=== PATIENT | male | born 1995 | race Caucasian/White ===

== ENCOUNTER 2018-01-04 23:02 | Emergency (ER) | payer SELFPAY ==
--- NOTE | 2018-01-04 23:29 | ED.PDOC ---
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 Occurred: just prior to arrival Pain - Lower Extremity: moderate: Left Ankle Method of Injury: fell, twisted Improving Factors: nothing Worsening Factors: nothing Associated Symptoms: pain weight bearing Allergies/Adverse Reactions: Allergies NO KNOWN ALLERGY Allergy (Verified 08/14/15 22:37) Home Medications: Ambulatory Orders Albuterol Inhaler [Proventil Hfa Inhaler] 2 puff INH Q4H #1 inh 07/25/15 Review of Systems - Review of Systems Constitutional: States: no symptoms reported EENTM: States: no symptoms reported Respiratory: States: no symptoms reported Cardiology: States: no symptoms reported Musculoskeletal: States: joint pain All other Systems: Reviewed and Negative, No Change from Baseline Past Medical History (General) - Patient Medical History Hx Seizures: No Hx Stroke: No Hx Dementia: No Hx Asthma: Yes Hx of COPD: No Hx Cardiac Disorders: No Hx Congestive Heart Failure: No Hx Pacemaker: No Hx Hypertension: No Hx Thyroid Disease: No Hx Diabetes: No Hx Gastroesophageal Reflux: No Hx Renal Disease: No Hx Cancer: No Hx of HIV: No Hx Hepatitis C: No Hx MRSA: No Surgical History: no surgical history - Vaccination History Hx Tetanus, Diphtheria Vaccination: No - Social History Hx Tobacco Use: Yes Hx Alcohol Use: Yes Hx Substance Use: No Hx Substance Use Treatment: No Hx Depression: Yes - thought of hurting himself, but not "suicidal" Hx Physical Abuse: No Hx Emotional Abuse: No Hx Suspected Abuse: No - Female History Patient : No Family Medical History - Family History Mother Family History: Unknown Physical Exam - Physical Exam General Appearance: Alert, Comfortable, No apparent distress Eyes, Ears, Nose, Throat: normal ENT inspection Neck: non-tender, full range of motion, supple Cardiovascular/Respiratory: regular rate, rhythm, no M/R/G, normal peripheral pulses, normal breath sounds Gastrointestinal/Abdominal: non-tender, no organomegaly Back: no CVA tenderness, no vertebral tenderness Thigh/Hip: no evidence of injury Knee: no evidence of injury Ankle: bone tenderness - left ankle left, limited ROM - left ankle, pain - left ankle Foot: bone tenderness - dorsal aspect foot left Neuro/Tendon: normal sensation, normal motor functions, normal tendon functions , no evidence tendon injury Mental Status: alert, oriented x 3 Skin: normal color, warm/dry Progress - Progress Progress: 01/05/18 00:52 Vital Signs - 8 hr 01/04/18 23:28 Temperature 98 F Pulse Rate [ 78 Right] Respiratory 18 Rate Blood Pressure 122/75 [Left Arm] O2 Sat by Pulse 98 Oximetry - EKG/XRAY/CT XRAY: ankle - left no fracture Departure - Departure Clinical Impression: Medial ankle sprain Qualifiers: Encounter type: initial encounter Laterality: left Qualified Code(s): S93.422A - Sprain of deltoid ligament of left ankle, initial encounter Fall from ladder Qualifiers: Encounter type: initial encounter Qualified Code(s): W11.XXXA - Fall on and from ladder, initial encounter Time of Disposition: 00:54 Disposition: Discharge to Home or Self Care Condition: Good Departure Forms: ED Discharge - Pt. Copy, Patient Portal Self Enrollment Instructions: DI for Ankle Sprain, Ankle Sprain Home Medications: Ambulatory Orders Albuterol Inhaler [Proventil Hfa Inhaler] 2 puff INH Q4H #1 inh 07/25/15 Additional Instructions: Ice pack to affected area 20 minutes 3 x a day during waking hours only as needed for 3 days;May use Aspercreme Cream apply to left ankle 3 x a day for 10- 14 days(over the counter)Elevate left leg 20 degrees at bedtime until better; May take ALEVE 1-2 tablets am/pm for pain swelling as needed until better(over the counter)Follow up with primary Md 01/11/2018 as needed
[2018-01-04 23:49] VITALS: BP 122/75; TEMP 98; O2SAT 98
--- NOTE | 2018-01-05 00:13 | RAD ---
Examination: XR ANKLE 3 OR MORE VIEWS dated 01/04/2018 11:32 PM CDT History: fell off ladder Comparison: None Technique: Three views of the left ankle FINDINGS: No acute fracture or dislocation. Symmetric ankle mortise. IMPRESSION: No acute osseous abnormality. Electronically signed by: Aroldo Roque MD 01/05/2018 12:12 AM CDT
[2018-01-05] MEDS ORDERED: KETOROLAC TROMETHAMINE INJ 30 MG/ML VIAL IM ONE (00:59)
== END 2018-01-05 01:16 | disposition home or self-care (01) ==
LOC: ER 23:02
DX: S93.422A Sprain of deltoid ligament of left ankle, initial encounter (principal); W11.XXXA Fall on and from ladder, initial encounter; Y92.89 Other specified places as the place of occurrence of the external cause; Y99.0 Civilian activity done for income or pay
CPT/HCPCS: 73610; J1885

== ENCOUNTER 2018-10-28 17:43 | Emergency (ER) | payer SELFPAY ==
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
[2018-10-28 19:09] VITALS: BP 129/83; TEMP 97.9; O2SAT 97
== END 2018-10-28 19:08 | disposition home or self-care (01) ==
LOC: ER 17:43
DX: S00.93XA Contusion of unspecified part of head, initial encounter (principal); J45.909 Unspecified asthma, uncomplicated; Y04.0XXA Assault by unarmed brawl or fight, initial encounter; Z87.891 Personal history of nicotine dependence; Y92.9 Unspecified place or not applicable

== ENCOUNTER 2019-06-05 14:35 | Emergency (ER) | payer SELFPAY ==
[2019-06-05] MEDS ORDERED: NEOMYCIN-BACITRACIN-POLYMYXIN 0.9 GM UD TOP ONE (15:19)
--- NOTE | 2019-06-05 18:31 | ED.PDOC ---
History of Present Illness - General Chief Complaint: Behavioral / Psych Stated Complaint: manic episode,cutting self Time Seen by Provider: 06/05/19 14:57 Source: patient Exam Limitations: no limitations - History of Present Illness Initial Comments: the patient is a 24-year-old male presenting to the emergency room secondary to having cut on his proximal left forearm this morning. He does have a history of bipolar disorder and has been off of medications at least 3 years. He does also have a history of recent polysubstance abuse including alcohol abuse and marijuana abuse. He has had suicidal ideation but he denies any attempts. He reports that he does not want to kill himself. He has poor sleep. He has approximately 4 superficial lacerations to his proximal forearm. Total estimated blood loss is less than 2 cc. None require repair. He has had cutting episodes in the past. Timing/Duration: unsure Severity: mild Improving Factors: nothing Worsening Factors: nothing Associated Symptoms: denies symptoms Allergies/Adverse Reactions: Allergies NO KNOWN ALLERGY Allergy (Verified 08/14/15 22:37) Home Medications: Ambulatory Orders Albuterol Inhaler [Proventil Hfa Inhaler] 2 puff INH Q4H #1 inh 07/25/15 Review of Systems - Review of Systems Constitutional: States: no symptoms reported EENTM: States: no symptoms reported Respiratory: States: no symptoms reported Cardiology: States: no symptoms reported Gastrointestinal/Abdominal: States: no symptoms reported Genitourinary: States: no symptoms reported Musculoskeletal: States: no symptoms reported Skin: States: no symptoms reported Neurological: States: see HPI Endocrine: States: no symptoms reported All other Systems: No Change from Baseline Past Medical History (General) - Patient Medical History Hx Seizures: No Hx Stroke: No Hx Dementia: No Hx Asthma: Yes Hx of COPD: No Hx Cardiac Disorders: No Hx Congestive Heart Failure: No Hx Pacemaker: No Hx Hypertension: No Hx Thyroid Disease: No Hx Diabetes: No Hx Gastroesophageal Reflux: No Hx Renal Disease: No Hx Cancer: No Hx of HIV: No Hx Hepatitis C: No Hx MRSA: Yes - right thigh Surgical History: tonsillectomy - Vaccination History Hx Tetanus, Diphtheria Vaccination: - unknown Hx Influenza Vaccination: No Hx Pneumococcal Vaccination: No - Social History Hx Tobacco Use: Yes Hx Alcohol Use: Yes Hx Substance Use: Yes Hx Substance Use Treatment: No Hx Depression: Yes - thought of hurting himself, but not "suicidal" Hx Physical Abuse: No Hx Emotional Abuse: No Hx Suspected Abuse: No - Female History Patient : No Family Medical History - Family History Mother Family History: Unknown Physical Exam - Physical Exam General Appearance: Alert, No apparent distress Eye Exam: bilateral normal Ears, Nose, Throat: hearing grossly normal, normal ENT inspection, normal pharynx Neck: full range of motion, supple Respiratory: lungs clear, normal breath sounds, no respiratory distress, no accessory muscle use Cardiovascular/Chest: normal peripheral pulses, regular rate, rhythm, no edema Peripheral Pulses: radial,right: 2+, radial,left: 2+ Gastrointestinal/Abdominal: non tender, soft Rectal Exam: deferred Back Exam: normal inspection Extremity: normal range of motion, no pedal edema, no calf tenderness, normal capillary refill Neurologic: property adjuster II-XII nml as tested, no motor/sensory deficits, alert, oriented x 3 Skin Exam: other - lacerations as per history of present illness. Comments: Vital Signs - 24 hr 06/05/19 14:54 Temperature 99 F Pulse Rate [ 114 H Right Brachial] Respiratory 20 Rate Blood Pressure 120/95 [Right Arm] O2 Sat by Pulse 99 Oximetry Progress - Progress Progress: 06/05/19 18:31 the patient a 24-year-old male presenting to the emergency room secondary to bipolar disorder currently in a depressive state with suicidal ideation. The patient also gave himself superficial lacerations to the left upper extremity this morning. lacerations were cleaned and bandaged. None require repair. SENDY can be applied to these as needed.[facility]'s been consultative. The patient has contracted for safety and will follow up with [facility] tomorrow. ER warnings were given. - Results/Orders Results/Orders: Laboratory Results - last 24 hr 06/05/19 06/05/19 06/05/19 15:14 15:14 15:14 WBC 4.7 L RBC 5.20 Hgb 17.2 Hct 49.4 MCV 95.0 H MCH 33.0 H MCHC 34.7 RDW 12.3 Plt Count 215 MPV 7.3 L Absolute Neuts (auto) 2.50 Absolute Lymphs (auto) 1.30 Absolute Monos (auto) 0.60 Absolute Eos (auto) 0.20 Absolute Basos (auto) 0.10 Neutrophils % 53.8 Lymphocytes % 28.5 Monocytes % 12.2 H Eosinophils % 4.4 Basophils % 1.1 Sodium 137 Potassium 3.8 Chloride 103 Carbon Dioxide 21 Anion Gap 16.8 BUN 18 Creatinine 0.75 BUN/Creatinine Ratio 24.0 H Random Glucose 93 Serum Osmolality 275.4 Calcium 10.1 Total Bilirubin 1.1 H AST 32 ALT 26 Alkaline Phosphatase 50 Creatine Kinase 156 CK-MB (CK-2) 2.3 CK-MB (CK-2) % 1.47 Troponin I < 0.02 Serum Total Protein 8.3 H Albumin 5.2 Globulin 3.1 Albumin/Globulin Ratio 1.7 Amylase 78 Lipase 26 TSH 1.47 Urine Color Urine Appearance Urine pH Ur Specific [address] Urine Protein Urine Glucose (UA) Urine Ketones Urine Blood Urine Nitrite Urine Bilirubin Urine Urobilinogen Ur Leukocyte Esterase Urine RBC Urine WBC Ur Epithelial Cells Urine Bacteria Urine Opiates Screen Urine Barbiturates Ur Phencyclidine Scrn U Amphetamin/Meth Scrn U Benzodiazepines Scrn U Cocaine Metab Screen U Cannabinoids Screen Ethyl Alcohol 06/05/19 06/05/19 06/05/19 15:14 15:14 15:14 WBC RBC Hgb Hct MCV MCH MCHC RDW Plt Count MPV Absolute Neuts (auto) Absolute Lymphs (auto) Absolute Monos (auto) Absolute Eos (auto) Absolute Basos (auto) Neutrophils % Lymphocytes % Monocytes % Eosinophils % Basophils % Sodium Potassium Chloride Carbon Dioxide Anion Gap BUN Creatinine BUN/Creatinine Ratio Random Glucose Serum Osmolality Calcium Total Bilirubin AST ALT Alkaline Phosphatase Creatine Kinase CK-MB (CK-2) CK-MB (CK-2) % Troponin I Serum Total Protein Albumin Globulin Albumin/Globulin Ratio Amylase Lipase TSH Urine Color Yellow Urine Appearance Clear Urine pH 6.[address] 1.015 Urine Protein Negative Urine Glucose (UA) Negative Urine Ketones Negative Urine Blood Negative Urine Nitrite Negative Urine Bilirubin Negative Urine Urobilinogen 0.2 Ur Leukocyte Esterase Negative Urine RBC 0 Urine WBC 0 Ur Epithelial Cells 0 Urine Bacteria 0 Urine Opiates Screen Negative Urine Barbiturates Positive H Ur Phencyclidine Scrn Negative U Amphetamin/Meth Scrn Negative U Benzodiazepines Scrn Negative U Cocaine Metab Screen Negative U Cannabinoids Screen Positive H Ethyl Alcohol 68.60 Departure - Departure Clinical Impression: Self-harm, Polysubstance abuse Bipolar disorder Qualifiers: Active/Remission status: currently active Current bipolar episode type: depressed Current episode severity: moderate Qualified Code(s): F31.32 - Bipolar disorder, current episode depressed, moderate Disposition: Discharge to Home or Self Care Condition: Fair Departure Forms: ED Discharge - Pt. Copy, Patient Portal Self Enrollment Instructions: DI for Bipolar Disorder, DI for Suicidal Ideation-Adult Diet: regular diet Activity: increase activity as tolerated Home Medications: Ambulatory Orders Albuterol Inhaler [Proventil Hfa Inhaler] 2 puff INH Q4H #1 inh 07/25/15 Additional Instructions: the patient a 24-year-old male presenting to the emergency room secondary to bipolar disorder currently in a depressive state with suicidal ideation. The patient also gave himself superficial lacerations to the left upper extremity this morning. lacerations were cleaned and bandaged. None require repair. SENDY can be applied to these as needed.[facility]'s been consultative. The patient has contracted for safety and will follow up with [facility] tomorrow. ER warnings were given.
[2019-06-05 18:54] VITALS: O2SAT 96
[2019-06-05 18:56] VITALS: BP 123/81; TEMP 98.3
== END 2019-06-05 18:55 | disposition home or self-care (01) ==
LOC: ER 14:35
DX: F31.32 Bipolar disorder, current episode depressed, moderate (principal); S51.812A Laceration without foreign body of left forearm, initial encounter; F12.10 Cannabis abuse, uncomplicated; F13.10 Sedative, hypnotic or anxiolytic abuse, uncomplicated; J45.909 Unspecified asthma, uncomplicated; X83.8XXA Intentional self-harm by other specified means, initial encounter; Y92.9 Unspecified place or not applicable; Z91.5 Personal history of self-harm; Z87.891 Personal history of nicotine dependence

== ENCOUNTER 2019-08-25 20:20 | Emergency (ER) | payer SELFPAY ==
[2019-08-25 20:30] VITALS: TEMP 97.9; O2SAT 99
[2019-08-25] MEDS ORDERED: TETANUS,DIPHTHERIA,PERTUSSIS 1 EA SYG IM ONE (20:39)
--- NOTE | 2019-08-25 20:51 | ED.PDOC ---
History of Present Illness - General Chief Complaint: Laceration Stated Complaint: head lack Time Seen by Provider: 08/25/19 20:50 - History of Present Illness Initial Comments: Pt is a 24 y.o. M who presents for evaluation of a laceration of his head. Reports he was walking under a low carport and hit his head on the tin roof, cutting the top of his head. no other injuries. bleeding stopped on its own. Allergies/Adverse Reactions: Allergies NO KNOWN ALLERGY Allergy (Verified 08/14/15 22:37) Home Medications: Ambulatory Orders Albuterol Inhaler [Proventil Hfa Inhaler] 2 puff INH Q4H #1 inh 07/25/15 Review of Systems - Review of Systems Constitutional: States: no symptoms reported EENTM: States: no symptoms reported Respiratory: States: no symptoms reported Cardiology: States: no symptoms reported Gastrointestinal/Abdominal: States: no symptoms reported Genitourinary: States: no symptoms reported Musculoskeletal: States: no symptoms reported Skin: States: other - laceration Neurological: States: no symptoms reported Endocrine: States: no symptoms reported Hematologic/Lymphatic: States: no symptoms reported All other Systems: Reviewed and Negative Past Medical History (General) - Patient Medical History Hx Seizures: No Hx Stroke: No Hx Dementia: No Hx Asthma: Yes Hx of COPD: No Hx Cardiac Disorders: No Hx Congestive Heart Failure: No Hx Pacemaker: No Hx Hypertension: No Hx Thyroid Disease: No Hx Diabetes: No Hx Gastroesophageal Reflux: No Hx Renal Disease: No Hx Cancer: No Hx of HIV: No Hx Hepatitis C: No Hx MRSA: Yes - right thigh Surgical History: tonsillectomy - Vaccination History Hx Tetanus, Diphtheria Vaccination: No Hx Influenza Vaccination: Yes Hx Pneumococcal Vaccination: No - Social History Hx Tobacco Use: Yes Hx Alcohol Use: No Hx Substance Use: Yes Hx Substance Use Treatment: No Hx Depression: Yes - thought of hurting himself, but not "suicidal" Hx Physical Abuse: No Hx Emotional Abuse: No Hx Suspected Abuse: No - Female History Patient : No Family Medical History - Family History Mother Family History: Unknown Physical Exam - Physical Exam General Appearance: Alert, Comfortable Head Injury: other - 4cm laceration over crown of scalp ENT Exam: hearing grossly normal, no evidence of ENT injury Neck Exam: full range of motion, normal alignment Cardiovascular/Respiratory: no M/R/G, normal peripheral pulses Gastrointestinal/Abdominal: non tender, soft Extremity Exam: no evidence of injury, normal range of motion Neurologic: no motor/sensory deficits, alert, normal mood/affect Skin Exam: normal color, warm/dry Progress - Progress Progress: 08/25/19 21:03 MDM\\ Patient presenting with 4cm scalp laceration. Lac repaired with dermabond and hair opposition technique. Will update tetanus. Procedures - Laceration/Wound Repair Head Wound Length (cm): 4 Wound's Depth, Shape: linear Wound Explored: no foreign body removed Irrigated w/ Saline (cc's): 100 Betadine Prep?: No Wound Debrided: minimal Wound Repaired With: dermabond Sterile Dressing Applied?: No Departure - Departure Clinical Impression: Laceration of scalp Disposition: Discharge to Home or Self Care Condition: Good Departure Forms: ED Discharge - Pt. Copy, Patient Portal Self Enrollment Instructions: DI for Laceration Repair Home Medications: Ambulatory Orders Albuterol Inhaler [Proventil Hfa Inhaler] 2 puff INH Q4H #1 inh 07/25/15
[2019-08-25 21:01] VITALS: BP 142/80
== END 2019-08-25 20:53 | disposition home or self-care (01) ==
LOC: ER 20:20
DX: S01.01XA Laceration without foreign body of scalp, initial encounter (principal); J45.909 Unspecified asthma, uncomplicated; F32.9 Major depressive disorder, single episode, unspecified; W45.8XXA Other foreign body or object entering through skin, initial encounter; Y93.01 Activity, walking, marching and hiking; Y92.89 Other specified places as the place of occurrence of the external cause; Z87.891 Personal history of nicotine dependence; Z79.899 Other long term (current) drug therapy